=== PATIENT | female | born 1975 | race Caucasian/White ===

== ENCOUNTER → 2016-12-03 | Outpatient (CLI) | payer SELFPAY | END | disposition short-term general hospital (02) | LOC: CLCARD 10:47 | DX: R00.0 Tachycardia, unspecified (principal); R55 Syncope and collapse; E11.621 Type 2 diabetes mellitus with foot ulcer; L97.519 Non-pressure chronic ulcer of other part of right foot with unspecified severity ==

== ENCOUNTER → 2016-12-31 | Outpatient (CLI) | payer SELFPAY | END | disposition short-term general hospital (02) | LOC: CLCARD 08:50 | DX: R55 Syncope and collapse (principal); R00.0 Tachycardia, unspecified; E11.9 Type 2 diabetes mellitus without complications ==